=== PATIENT | male | born 1960 | race Caucasian/White ===

== ENCOUNTER 2023-04-07 12:30 | Emergency (ER) | payer BC, OTHER, SELFPAY ==
[2023-04-07] MEDS ORDERED: MORPHINE 4 MG/ML SYR ONE (13:24)
[2023-04-07] MEDS ORDERED: ONDANSETRON 4 MG/2 ML VIAL ONE (13:25)
[2023-04-07] MEDS ORDERED: NA CHLORIDE 0.9% 1,000 ML ONE (13:25)
[2023-04-07] MEDS ORDERED: KETOROLAC 30 MG/ML INJ ONE (13:25)
--- NOTE | 2023-04-07 13:30 | RAD REPORT ---
EXAM DESCRIPTION: CT - Abdomen Pelvis Wo Contrast - 04/07/2023 12:57 pm CLINICAL HISTORY: KIDNEY STONES COMPARISON: No comparisons TECHNIQUE: Thin cut axial CT imaging of the abdomen and pelvis was performed without IV contrast. Mu ltiplanar reformats were generated and reviewed. All CT scans are performed using dose optimization technique as appropriate and may include automated exposure control or mA/KV adjustment according to patient size. FINDINGS: No suspicious findings in the lung bases. The liver, spleen, adrenal glands, and pancreas show no suspicious findings. Gallbladder and biliary tree are also without suspicious finding. Symmetric renal contour, without suspicious parenchymal findings within limits of noncontrast techniq ue. Proximal left ureter 4 millimeter calculus with mild hydroureteronephrosis. Another nonobstructin g 3 millimeter calculus at the left mid to lower pole. Multiple bilateral renal hypoattenuating lesio ns, largest measuring 2.5 centimeter and the left lower pole. No dilated bowel loops or bowel wall thickening. No free air, free fluid or inflammatory stranding. F at containing small right inguinal hernia. No suspicious mass or bulky lymphadenopathy. The urinary b ladder is without significant finding. Marked prostatomegaly. No suspicious bony findings. IMPRESSION: Mild left hydroureteronephrosis secondary to a 4 millimeter proximal ureter calculus. Other incidental findings as above. The findings were communicated to Bakari Santoyo on 04/07/2023 at 13:25 hours.
[2023-04-07 13:34] LABS: Absolute Lymphocytes (CBC) 0.8 K/uL (0.7-4.9); Hematocrit 48.1 % (39.6-49.0); Lymphocytes % 6.2 % (15.3-44.8); MCV 85.1 fL (80-100); MPV 8.7 fL (7.6-11.3); RBC Red Blood Cell Count 5.65 M/uL (4.33-5.43)
[2023-04-07 13:48] LABS: Specific Gravity 1.022 (1.005-1.030); Urine Bacteria <20 /HPF (<20); Urine Bilirubin NEGATIVE (Negative); Urine Blood 3+ (OVER) (Negative); Urine Clarity Extremely Turbid (Clear); Urine Color Yellow (Yellow); Urine Glucose NEGATIVE (Negative); Urine Mucus Slight /HPF (None Seen); Urine Protein TRACE (Negative); Urine RBC >50 /HPF (None Seen); Urine Urobilinogen Normal (Normal)
[2023-04-07 13:56] LABS: Bilirubin Total 0.7 mg/dL (0.2-1.0); Potassium 3.6 mEq/L (3.5-5.1); Protein, Total 7.7 g/dL (6.4-8.2)
--- NOTE | 2023-04-07 14:09 | ER ---
Nurse's Notes [facility] Name: Blair Salas Age: 62 yrs Sex: Male : 1960 Arrival Date: 04/07/2023 Time: 12:30 Bed 17 Private MD: Diagnosis: L kidney stone, L hydronephrosis Presentation: 04/07 12:45 Chief complaint: Patient states: he started having left lower abdominal pain at approx ap3 1030 this morning. Coronavirus screen: At this time, the client does not indicate any symptoms associated with coronavirus-19. Ebola Screen: No symptoms or risks identified at this time. Initial Sepsis Screen: Does the patient meet any 2 criteria? No. Patient's initial sepsis screen is negative. Does the patient have a suspected source of infection? No. Patient's initial sepsis screen is negative. Risk Assessment: Do you want to hurt yourself or someone else? Patient reports no desire to harm self or others. Onset of symptoms was April 07, 2023 at 10:30. 12:45 Method Of Arrival: Ambulatory ap3 12:45 Acuity: KAY 3 ap3 Triage Assessment: 12:47 General: Appears uncomfortable, Behavior is calm, cooperative. Pain: Complains of pain ap3 in left lower quadrant Pain currently is 7 out of 10 on a pain scale. Pain began 2 hours ago. Neuro: Level of Consciousness is awake, alert, obeys commands, Oriented to person, place, time, situation. Cardiovascular: Patient's skin is warm and dry. Respiratory: Airway is patent Respiratory effort is even, unlabored, Respiratory pattern is regular, symmetrical. GI: Reports lower abdominal pain. Historical: - Allergies: 12:46 No Known Allergies; ap3 - Home Meds: 12:46 unknown htn medication [Active]; ap3 - PMHx: 12:46 Hypertensive disorder; ap3 - Immunization history:: Client reports receiving the 2nd dose of the Covid vaccine. - Social history:: Smoking status: Patient denies any tobacco usage or history of. Screenin:47 [facility] ED Fall Risk Assessment (Adult) History of falling in the last 3 months, ap3 including since admission No falls in past 3 months (0 pts). Abuse screen: Denies threats or abuse. Nutritional screening: No deficits noted. Tuberculosis screening: No symptoms or risk factors identified. Assessment: 13:30 General: Appears in no apparent distress. uncomfortable, Behavior is calm, cooperative, ld1 appropriate for age. Pain: Complains of pain in abdomen and left lower quadrant Pain does not radiate. Pain currently is 9 out of 10 on a pain scale. Quality of pain is described as throbbing. Neuro: Level of Consciousness is awake, alert, obeys commands, Oriented to person, place, time, situation. Cardiovascular: Capillary refill < 3 seconds Patient's skin is warm and dry. Respiratory: Airway is patent Respiratory effort is even, unlabored. GI: Abdomen is round non-distended, Bowel sounds present X 4 quads. Abd is soft Abdomen is tender to palpation in left upper quadrant and left lower quadrant Reports lower abdominal pain, upper abdominal pain. : No signs and/or symptoms were reported regarding the genitourinary system. EENT: No signs and/or symptoms were reported regarding the EENT system. Derm: No signs and/or symptoms reported regarding the dermatologic system. Musculoskeletal: No signs and/or symptoms reported regarding the musculoskeletal system. 13:40 Reassessment: Patient appears in no apparent distress at this time. Patient and/or ld1 family updated on plan of care and expected duration. Pain level reassessed. Patient is alert, oriented x 3, equal unlabored respirations, skin warm/dry/pink. Pain decreased from 10 to 2. Patient feeling better at this time. Patient states feeling better. Patient states symptoms have improved. Vital Signs: 12:45 BP 142 / 95; Pulse 82; Resp 19; Temp 98.3; Pulse Ox 96% ; Weight 86.18 kg; Height 5 ft. ap3 10 in. ; Pain 7/10; 13:30 BP 163 / 91; Pulse 71; Resp 18; Pulse Ox 93% on R/A; Pain 10/10; ld1 13:39 Pain 3/10; ld1 14:08 BP 144 / 84; Pulse 70; Resp 18; Pulse Ox 96% on R/A; ld1 12:45 Body Mass Index 27.26 (86.18 kg, 177.8 cm) ap3 12:45 Pain Scale: Adult ap3 13:30 Pain Scale: Adult ld1 13:39 Pain Scale: Adult ld1 ED Course: 12:33 Patient arrived in ED. rg4 12:34 Bakari Santoyo MD is Attending Physician. jr11 12:46 Triage completed. ap3 12:47 Arm band placed on right wrist. ap3 12:58 CT Abd/Pelvis - Without Contrast In Process Unspecified. EDMS 13:14 Sharee Porras, KAM[place] is Primary Nurse. ld1 13:30 Patient has correct armband on for positive identification. Placed in gown. Bed in low ld1 position. Call light in reach. Side rails up X2. shelter monitor on. Pulse ox on. NIBP on. Door closed. Noise minimized. Warm blanket given. 13:30 CBC with Diff Sent. ld1 13:30 CMP Sent. ld1 13:30 Lipase Sent. ld1 13:30 Urinalysis w/ reflexes Sent. ld1 13:30 No provider procedures requiring assistance completed. Inserted saline lock: 20 gauge ld1 in right antecubital area, using aseptic technique. Blood collected. 14:16 IV discontinued, intact, bleeding controlled, No redness/swelling at site. ld1 Administered Medications: 13:30 Drug: NS 0.9% IV 1000 ml Route: IV; Rate: 1 bolus; Site: right antecubital; ld1 13:39 Follow up: Response: No adverse reaction ld1 13:30 Drug: TORadol - Ketorolac IVP 15 mg Route: IVP; Site: right antecubital; ld1 13:39 Follow up: Response: No adverse reaction; Pain is decreased ld1 13:30 Drug: Ondansetron IVP 4 mg Route: IVP; Site: right antecubital; ld1 13:39 Follow up: Response: No adverse reaction ld1 13:30 Drug: morphine IVP or IV 4 mg Route: IVP; Infused Over: 4 mins; Site: right antecubital;ld1 13:39 Follow up: Pain 3/10 Adult; Response: No adverse reaction; Pain is decreased ld1 Medication: 13:30 VIS not applicable for this client. ld1 Outcome: 14:09 Discharge ordered by . jr11 14:16 Discharged to home ambulatory, with family. ld1 14:16 Condition: stable 14:16 Discharge instructions given to patient, family, Instructed on discharge instructions, follow up and referral plans. medication usage, Demonstrated understanding of instructions, follow-up care, medications, Prescriptions given X 3. 14:16 Patient left the ED. ld1 Signatures: Dispatcher [employer] Kimber Dang rg4 Soco Page RN RN ap3 Sharee Porras RN RN ld1 Bakari Santoyo MD MD jr11 Corrections: (The following items were deleted from the chart) 12:47 12:46 PMHx: None; ap3 ap3
--- NOTE | 2023-04-07 14:10 | EDPHYS ---
Physician Documentation [facility] Name: Blair Salas Age: 62 yrs Sex: Male : 1960 Arrival Date: 04/07/2023 Time: 12:30 Bed 17 Private MD: ED Physician Bakari Santoyo HPI: 04/07 12:49 This 62 yrs old Male presents to ER via Ambulatory with complaints of Abdominal Pain. jr11 12:49 The patient complains of pain in the abdomen and left lower quadrant. Onset: The jr11 symptoms/episode began/occurred 2 hour(s) ago. Modifying factors: the symptoms are aggravated by nothing. Associated signs and symptoms: Pertinent positives: Pertinent negatives: nausea, vomiting. Severity of pain: At its worst the pain was severe in the emergency department the pain is unchanged. h/o kidney stones. Historical: - Allergies: 12:46 No Known Allergies; ap3 - Home Meds: 12:46 unknown htn medication [Active]; ap3 - PMHx: 12:46 Hypertensive disorder; ap3 - Immunization history:: Client reports receiving the 2nd dose of the Covid vaccine. - Social history:: Smoking status: Patient denies any tobacco usage or history of. ROS: 12:49 All other systems are negative. jr11 Exam: 12:49 Constitutional: uncomfortable 2/2 pain Head/Face: Normocephalic, atraumatic. Eyes: jr11 Extra-ocular motions intact. Lids and lashes normal. Conjunctiva and sclera are non-icteric and not injected. Cornea within normal limits. Periorbital areas with no swelling, redness, or edema. ENT: Nares patent. No nasal discharge, no septal abnormalities noted. Oropharynx with no redness, swelling, or masses, exudates, or evidence of obstruction, uvula midline. Mucous membranes moist. Neck: Trachea midline, no thyromegaly or masses palpated, and no cervical lymphadenopathy. Supple, full range of motion without nuchal rigidity, or vertebral point tenderness. No Meningismus. Chest/axilla: Normal chest wall appearance and motion. Nontender with no deformity. No lesions are appreciated. Cardiovascular: Regular rate and rhythm with a normal S1 and S2. No gallops, murmurs, or rubs. Normal PMI, no JVD. No pulse deficits. Respiratory: Lungs have equal breath sounds bilaterally, clear to auscultation and percussion. No rales, rhonchi or wheezes noted. No increased work of breathing, no retractions or nasal flaring. Abdomen/GI: Soft, non-tender, with normal bowel sounds. No distension or tympany. No guarding or rebound. No evidence of tenderness throughout. MS/ Extremity: Pulses equal, no cyanosis. Neurovascular intact. Full, normal range of motion. Neuro: Awake and alert, GCS 15, oriented to person, place, time, and situation. No gross motor or sensory deficits. Vital Signs: 12:45 BP 142 / 95; Pulse 82; Resp 19; Temp 98.3; Pulse Ox 96% ; Weight 86.18 kg; Height 5 ft. ap3 10 in. ; Pain 7/10; 13:30 BP 163 / 91; Pulse 71; Resp 18; Pulse Ox 93% on R/A; Pain 10/10; ld1 13:39 Pain 3/10; ld1 14:08 BP 144 / 84; Pulse 70; Resp 18; Pulse Ox 96% on R/A; ld1 12:45 Body Mass Index 27.26 (86.18 kg, 177.8 cm) ap3 12:45 Pain Scale: Adult ap3 13:30 Pain Scale: Adult ld1 13:39 Pain Scale: Adult ld1 MDM: 12:49 Differential diagnosis: nephrolithiasis, pyelonephritis, UTI. Data reviewed: [facility] signs, nurses notes. 12:52 Patient medically screened. [facility] 14:07 ED course: Patient feeling significantly better, pain under control, [facility] shows left-sided kidney stone, with hydronephrosis. Patient's pain under control with IV morphine. Patient will be discharged, has a urologist already. 04/07 12:48 Order name: CBC with Diff; Complete Time: 14: [facility] 04/07 12:48 Order name: CMP; Complete Time: 14: [facility] 04/07 12:48 Order name: Lipase; Complete Time: 14: [facility] 04/07 12:48 Order name: Urinalysis w/ reflexes; Complete Time: 14: [facility] 04/07 13:51 Order name: Urine Culture EDMS 04/07 12:48 Order name: CT Abd/Pelvis - Without Contrast; Complete Time: 13:33 [facility] 04/07 12:48 Order name: IV Saline Lock; Complete Time: 13:30 11 04/07 12:48 Order name: Labs collected and sent; Complete Time: 13:30 jr11 Administered Medications: 13:30 Drug: NS 0.9% IV 1000 ml Route: IV; Rate: 1 bolus; Site: right antecubital; ld1 13:39 Follow up: Response: No adverse reaction ld1 13:30 Drug: TORadol - Ketorolac IVP 15 mg Route: IVP; Site: right antecubital; ld1 13:39 Follow up: Response: No adverse reaction; Pain is decreased ld1 13:30 Drug: Ondansetron IVP 4 mg Route: IVP; Site: right antecubital; ld1 13:39 Follow up: Response: No adverse reaction ld1 13:30 Drug: morphine IVP or IV 4 mg Route: IVP; Infused Over: 4 mins; Site: right antecubital;ld1 13:39 Follow up: Pain 3/10 Adult; Response: No adverse reaction; Pain is decreased ld1 Disposition Summary: 04/07/23 14:09 Discharge Ordered Location: Home [facility] Condition: Stable jr Diagnosis - L kidney stone, L hydronephrosis jr11 Discharge Instructions: - Discharge Summary Sheet jr11 - Kidney Stones [facility] Forms: - Medication Reconciliation Form jr11 - Thank You Letter jr11 - Antibiotic Education jr11 - Prescription Opioid Use jr11 - Patient Portal [email or web address] jr11 Prescriptions: - Ibuprofen 600 mg Oral Tablet - take 1 tablet by ORAL route every 6 hours As needed take with food; 20 tablet; jr11 Refills: 0, Product Selection Permitted - Zofran 4 mg Oral Tablet - take 1 tablet by ORAL route every 12 hours As needed; 20 tablet; Refills: 0, jr11 Product Selection Permitted Signatures: Dispatcher [employer] Soco Harris RN RN ap3 Sharee Porras RN RN ld1 Bakari Santoyo MD MD jr11 Corrections: (The following items were deleted from the chart) 12:47 12:46 PMHx: None; ap3 ap3
[2023-04-07 14:35] VITALS: TEMP 98.3; O2SAT 96
[2023-04-07 14:39] VITALS: BP 144/84
== END 2023-04-07 14:16 | disposition home or self-care (01) ==
LOC: ER 12:30
DX: N20.0 Calculus of kidney (principal); N13.30 Unspecified hydronephrosis; I10 Essential (primary) hypertension; Z87.442 Personal history of urinary calculi
CPT/HCPCS: 87088; 85025; 81001; 87086; 36415; 83690; 80053; 74176; 96375; 96374; 99285; J2405; J7030